=== PATIENT | male | born 1950 | race Caucasian/White ===

== ENCOUNTER 2018-06-26 08:04 | Day surgery (SDC) | payer MEDICARE ==
[~2018-06-26 08:04] MED LIST: Midazolam 1 MG/ML 2 ML SDV ONE; Propofol 200 MG/20 ML SDV ONE; fentaNYL 100 MCG/2 ML SDV ONE
[2018-06-26] MEDS ORDERED: Dextrose 5%-Lactated Ringers 1,000 ML IV SCH (08:40)
[2018-06-26] MEDS ORDERED: Metoprolol Tartrate 25 MG Tab PO ONE (08:45)
[2018-06-26] MEDS ORDERED: Metoprolol Succinate 25 MG Tab.ER PO ONE (09:00)
--- NOTE | 2018-07-12 08:15 | OR ---
DATE OF PROCEDURE: 06/26/2018 PREOPERATIVE DIAGNOSIS: Indications for screening colonoscopy. POSTOPERATIVE DIAGNOSES: 1. Single small mid rectal polyp. 2. Minimal uncomplicated left colonic diverticulosis. PROCEDURE PERFORMED: Flexible colonoscopy with polypectomy by snare technique. ANESTHESIA: IV sedation. INDICATION FOR PROCEDURE: This is a 67-year-old presenting for screening colonoscopy. Plan is to proceed with a colonoscopy with biopsies and/or polypectomy as indicated. Potential risks of the procedure including bleeding and perforation were discussed, and the patient wishes to proceed. DETAILS OF PROCEDURE: The patient was taken to the operating room and placed in a left lateral decubitus position. IV sedation was administered, after which the initial digital rectal exam was performed and it was unremarkable. Colonoscope was then passed into the rectum with retroflexion revealing uncomplicated hemorrhoidal columns. Scope was then eventually passed to the level of the cecum. The prep was fairly good. To that level, the patient was noted to have some scattered left colonic diverticulosis, which was uncomplicated. No areas of colitis. The only abnormality additionally to the diverticulosis was a small mid rectal polyp measuring around 8 mm in size. This was encircled at its base with a snare and cauterized. Good hemostasis at the cautery site was noted and the polyp was retrieved via the suction device and sent for histologic evaluation. The scope was then withdrawn. Procedure concluded. There were no evident complications. The plan will be to await the pathology report. Certainly, this is an adenomatous polyp of some sort. A followup colonoscopy in 3 years would be warranted. Surjit Ann MD /[id number]
== END 2018-06-26 12:50 | disposition home or self-care (01) ==
LOC: JP.SDS 08:04
PROVIDERS: ATTEND Surgery
DX: Z12.11 Encounter for screening for malignant neoplasm of colon (principal); D12.8 Benign neoplasm of rectum; K57.30 Diverticulosis of large intestine without perforation or abscess without bleeding; K64.9 Unspecified hemorrhoids; I10 Essential (primary) hypertension; I25.10 Atherosclerotic heart disease of native coronary artery without angina pectoris; E11.9 Type 2 diabetes mellitus without complications; E78.5 Hyperlipidemia, unspecified; M10.9 Gout, unspecified
CPT/HCPCS: 45385; 88305; A9270; J2250; J2704; J3010; J7042

== ENCOUNTER 2019-07-27 12:11 | Emergency (ER) | payer MEDICARE ==
[2019-07-27] MEDS ORDERED: Lidocaine/EPINEPHrine/Tetracaine Soln 5 ML Each TOP ONE (12:40)
--- NOTE | 2019-07-27 12:49 | EDM.PDOC ---
ED HPI GENERAL MEDICAL PROBLEM - General Chief Complaint: ENT Problem Stated Complaint: NOSE BLEED Time Seen by Provider: 07/27/19 12:35 Source of Information: Reports: Patient, Old Records History Limitations: Reports: No Limitations - History of Present Illness INITIAL COMMENTS - FREE TEXT/NARRATIVE: 68 yo male presents with intermittent R sided nose bleed since yesterday. Not bleeding now. Is on Plavix and ASA. Most of the bleeding is anterior. Was not seen in the clinic for this. Onset: Sudden Onset Date: 07/26/19 Duration: Day(s): (1+), Intermittent Location: Reports: Face (R nares) Quality: Reports: Other (no pain) Severity: Moderate Improves with: Reports: Other (time) Worsens with: Reports: Other (unknown) Context: Reports: Other (See HPI) Associated Symptoms: Reports: No Other Symptoms Treatments CONSERVATION PLANNER: Reports: Other (see below) (none) - Related Data Allergies Allergy/AdvReac Type Severity Reaction Status Date / Time No Known Allergies Allergy Verified 07/27/19 12:22 Home Meds: Home Meds Aspirin [Children's Aspirin] 81 mg PO DAILY 11/06/17 [History] Clopidogrel Bisulfate [Clopidogrel] 75 mg PO DAILY 11/06/17 [History] Insulin Detemir [Levemir Flextouch] 35 unit SQ BEDTIME 11/06/17 [History] Losartan [Cozaar] 100 mg PO DAILY 11/06/17 [History] Nitroglycerin [Nitrostat] 0.4 mg SL ASDIRECTED PRN 11/06/17 [History] allopurinoL [Zyloprim] 100 mg PO DAILY 11/06/17 [History] amLODIPine Besylate [Amlodipine Besylate] 5 mg PO DAILY 11/06/17 [History] atorvaSTATin [Lipitor] 80 mg PO BEDTIME 11/06/17 [History] metFORMIN [Glucophage XR] 1,000 mg PO BIDMEALS 11/06/17 [History] Metoprolol Succinate [Toprol XL] 25 mg PO DAILY 06/26/18 [History] Niacin 500 mg PO BID 06/26/18 [History] Past Medical History Cardiovascular History: Reports: [place] Musculoskeletal History: Reports: Other (See Below) Other Musculoskeletal History: knee pain Endocrine/Metabolic History: Reports: Diabetes, Type II Hematologic History: Reports: B12 Deficiency - Past Surgical History Cardiovascular Surgical History: Reports: Coronary Artery Stent Social & Family History - Tobacco Use Smoking Status *Q: Never Smoker - Caffeine Use Caffeine Use: Reports: Coffee ED ROS ENT - Review of Systems Review Of Systems: See Below Constitutional: Reports: No Symptoms HEENT: Reports: Nosebleed Respiratory: Reports: No Symptoms Cardiovascular: Reports: No Symptoms Endocrine: Reports: No Symptoms GI/Abdominal: Reports: No Symptoms : Reports: No Symptoms Musculoskeletal: Reports: No Symptoms Skin: Reports: No Symptoms Neurological: Reports: No Symptoms Psychiatric: Reports: No Symptoms ED EXAM, ENT - Physical Exam Exam: See Below Exam Limited By: No Limitations General Appearance: Alert, WD/WN, No Apparent Distress Eye Exam: Bilateral Eye: PERRL, Other (no conjunctival pallor) Ears: Normal External Exam, Normal Canal, Hearing Grossly Normal Nose: Dried Blood (R septum). No: Normal Inspection, Normal Mucousa, No Blood, Active Bleeding Mouth/Throat: Normal Inspection, Normal Lips, Normal Oropharynx Head: Atraumatic, Normocephalic Neck: Normal Inspection Respiratory/Chest: No Respiratory Distress, No Accessory Muscle Use Cardiovascular: Regular Rate, Rhythm Course - Vital Signs Text/Narrative:: LET solution applied to a cotton ball and applied to R nares. Cautery with AgNO3 of the septum on the right. Still some oozing, a small Merocel tampon place in the R nostril. Last Recorded V/S: Last Vital Signs Temp 36.1 C 07/27/19 12:27 Pulse 72 07/27/19 12:27 Resp 14 07/27/19 12:27 BP 132/72 07/27/19 12:27 Pulse Ox - Orders/Labs/Meds Meds: Medications Discontinued Medications Generic Name Dose Route Start Last Admin Trade Name Freq PRN Reason Stop Dose Admin Lidocaine/Tetracaine 5 ml 07/27/19 12:40 07/27/19 12:45 Let Soln TOP 07/27/19 12:41 5 ml ONETIME ONE Administration Silver Nitrate 1 each 07/27/19 13:25 07/27/19 13:29 Silver Nitrate TOP 07/27/19 13:26 1 each ONETIME ONE Administration Departure - Departure Time of Disposition: 14:10 Disposition: Home, Self-Care 01 Condition: Fair Clinical Impression: Anterior epistaxis - Discharge Information *PRESCRIPTION DRUG MONITORING PROGRAM REVIEWED*: No *COPY OF PRESCRIPTION DRUG MONITORING REPORT IN PATIENT RASTA: No Instructions: Nosebleed, [id number] Referrals: PCP,None [Primary Care Provider] - Forms: ED Department Discharge Additional Instructions: Leave tampon in your nose over the weekend. Recheck in your clinic on Monday for removal. Keep your head always above your heart and avoid heavy lifting over the weekend. Return for heavy bleeding. Sepsis Event Note - Evaluation Sepsis Screening Result: No Definite Risk - Focused Exam Vital Signs: Vital Signs Temp Pulse Resp BP 07/27/19 12:27 36.1 C 72 14 132/72 Date Exam was Performed: 07/27/19 Time Exam was Performed: 14:06
[2019-07-27] MEDS ORDERED: Silver Nitrate Applicator Each TOP ONE (13:25)
== END 2019-07-27 14:10 | disposition home or self-care (01) ==
LOC: JP.ED 12:11
DX: R04.0 Epistaxis (principal); I25.2 Old myocardial infarction; E11.9 Type 2 diabetes mellitus without complications; Z79.4 Long term (current) use of insulin; Z79.82 Long term (current) use of aspirin; Z79.899 Other long term (current) drug therapy; Z79.02 Long term (current) use of antithrombotics/antiplatelets
CPT/HCPCS: 30901; 30905; 99282; 99283; A9270